=== PATIENT | female | born 1950 | race Caucasian/White ===

== ENCOUNTER 2017-07-25 11:05 | Emergency (ER) | payer MEDICARE, SELFPAY ==
[2017-07-25 11:12] VITALS: BP 144/77; PULSE 75; RESP 18; TEMP 36.8; O2SAT 98
--- NOTE | 2017-07-25 11:15 | DI.RAD.S_ITS ---
PROCEDURE: XR WRIST LT MIN 3V INDICATIONS: slip and fall, pain Technique: 4 views of the left wrist were obtained. COMPARISON: None. FINDINGS: Bones: No fractures or dislocations. No suspicious bony lesions. Moderate degenerative changes are present involving the basal joints of the thumb. The mineralization appears to be decreased involving the osseous structures of the wrist. Scaphoid view: Scaphoid appears to be intact. Soft tissues: No suspicious soft tissue calcifications. No significant soft tissue swelling is evident. IMPRESSION: No acute osseous abnormalities of the left wrist. Dictated by: Jeronimo Bowser M.D. on 07/25/2017 at 11:06 Approved by: Jeronimo Bowser M.D. on 07/25/2017 at 11:07
[2017-07-25 12:52] VITALS: BP 145/87; PULSE 70; RESP 12; O2SAT 98
--- NOTE | 2017-07-25 12:53 | ED.UPPEXIN ---
HPI - Extremity Injury (Upper) <PHOEBE Campos - Last Filed: 07/25/17 22:15> General Chief Complaint: Extremity Injury, Upper Stated Complaint: FELL THIS MORNING Source: patient History of Present Illness HPI narrative: 67-year-old female here for complaint of pain to her left wrist status post fall this morning. She states that she was walking her dog earlier this morning when the lesion of the dog wrapped around her causing her to fall when she went to [place] brace her fall with her left arm. She reports that right after the fall she had some slight swelling to her left wrist. She denies any other injuries no head injuries no loss conscious no nausea or vomiting. Increased pain with motion of the left wrist. Related Data Previous Rx's Medication Instructions Recorded lisinopril-hydrochlorothiazide 1 tab PO QAM #90 tab 04/09/16 ciclopirox 0.77 % TOPICAL BID #40 gm 05/17/16 Allergies Allergy/AdvReac Type Severity Reaction Status Date / Time bacitracin Allergy Mild rash Unverified 06/26/17 13:01 [From NEOSPORIN ([id number])] neomycin Allergy Mild rash Unverified 06/26/17 13:01 [From NEOSPORIN ([id number])] polymyxin B Allergy Mild rash Unverified 06/26/17 13:01 [From NEOSPORIN ([id number])] Review of Systems <PHOEBE Campos - Last Filed: 07/25/17 22:15> Review of Systems All systems reviewed & are unremarkable except as noted in HPI and below Constitutional Denies chills, Denies fever(s), Denies lethargy and Denies weakness Eyes Denies change in vision, Denies eye discharge, Denies irritation and Denies loss of vision Cardiovascular Denies chest pain, Denies irregular heart rhythm, Denies lightheadedness, Denies palpitations and Denies orthopnea Gastrointestinal Gastrointestinal: Denies abdominal pain, Denies change in bowel habits, Denies diarrhea, Denies nausea and Denies vomiting Genitourinary Denies hematuria, Denies flank pain, Denies urinary incontinence and Denies urinary urgency Musculoskeletal Comments: Pain to left wrist Neurologic Denies loss of vision and Denies weakness Endocrine Denies palpitations Exam <PHOEBE Campos - Last Filed: 07/25/17 22:15> Const General: cooperative and well developed Nutritional Appearance: well nourished Orientation: alert, awake, oriented x3 and not confused Eyes General: appearance normal, both eyes and all related structures Eyelids: eyelids normal Conjunctivae: conjunctivae normal Sclera: sclerae normal Pupils: PERRL EOM: EOM intact bilaterally Resp Effort & Inspection: normal respiratory effort, able to speak in complete sentences, no respiratory distress and no use of accessory muscles Auscultation: clear to auscultation bilaterally, no rales, no rhonchi and no wheezes Cardio Rate: regular rate Rhythm: regular rhythm Heart Sounds: no click, no gallops, no murmurs and no rubs Pulses: normal peripheral pulses Skin General: no rashes or lesions noted, No jaundice, No petechiae and warm Extrem Other: Slight swelling to left wrist. No deformities. No ecchymosis. Full range of motion. Distal sensation is intact. Distal pulses are intact. No open lesions Course <PHOEBE Campos - Last Filed: 07/25/17 22:15> Orders Ordered: ED Orders 07/25/17 11:15 XR wrist LT min 3V Stat Last Vital Signs Temp 98.3 F 07/25/17 11:12 Pulse 70 07/25/17 12:52 Resp 12 07/25/17 12:52 BP 145/87 H 07/25/17 12:52 Pulse Ox 98 07/25/17 12:52 <Rey Mares MD - Last Filed: 08/02/17 03:49> Orders Ordered: ED Orders 07/25/17 11:15 XR wrist LT min 3V Stat Last Vital Signs Temp 98.3 F 07/25/17 11:12 Pulse 70 07/25/17 12:52 Resp 12 07/25/17 12:52 BP 145/87 H 07/25/17 12:52 Pulse Ox 98 07/25/17 12:52 MDM - Extremity Injury (Upper) <PHOEBE Campos - Last Filed: 07/25/17 22:15> MDM Narrative Medical decision making narrative: X-ray of the left wrist was obtained and was negative for any acute findings. Signs and symptoms presents as contusion/sprain to the left wrist. She is placed in an Juice wrap for comfort and support. [id number] Tylenol or Motrin as needed for any discomfort. Ice and elevation to help with any swelling. Follow up with primary care provider. Review recommend repeat films in 7-10 days to rule out occult fracture. For any worsening symptoms return to the emergency room. Imaging Data wrist: Radiologist's impression: PROCEDURE: XR WRIST LT MIN 3V INDICATIONS: slip and fall, pain Technique: 4 views of the left wrist were obtained. COMPARISON: None. FINDINGS: Bones: No fractures or dislocations. No suspicious bony lesions. Moderate degenerative changes are present involving the basal joints of the thumb. The mineralization appears to be decreased involving the osseous structures of the wrist. Scaphoid view: Scaphoid appears to be intact. Soft tissues: No suspicious soft tissue calcifications. No significant soft tissue swelling is evident. IMPRESSION: No acute osseous abnormalities of the left wrist. <Rey Mares MD - Last Filed: 08/02/17 03:49> Medical Records The PA/ENTERTAINMENT CENTRE MANAGER functioned independently for the care of this pt, I was available, but not asked to participate in care. I am unable to determine appropriateness of management without personally examining the pt. Discharge Plan Departure Patient Disposition: Home, Self-Care Clinical Impression: Left wrist sprain Discharge Date/Time: 07/25/17 13:09 Interventions: ED Discharge Assessment Last Done: 07/25/17 13:08 Instructions: DI for Wrist Sprain Activity Restrictions/Additional Instructions: X-ray of the left wrist was obtained and was negative for any acute findings. Signs and symptoms presents as contusion/sprain to the left wrist. You have been placed in an Juice wrap for comfort and support use as directed. [id number] Tylenol or Motrin as needed for any discomfort. Ice and elevation to help with any swelling. Follow up with primary care provider. Recommend repeat films in 7-10 days to rule out occult fracture. For any worsening symptoms return to the emergency room. Prescriptions: No Action lisinopril-hydrochlorothiazide 20 MG/12.5 MG tablet 1 tab PO QAM Qty: 90 RF: 3 ciclopirox 30 GM gel 0.77 % Topical BID Qty: 40 RF: 0 Referrals: Alonzo Ritchie [Primary Care Provider] -
--- NOTE | 2017-07-25 13:06 | ED_ITS ---
HPI - Extremity Injury (Upper) <PHOEBE Campos - Last Filed: 07/25/17 22:15> General Chief Complaint: Extremity Injury, Upper Stated Complaint: FELL THIS MORNING Source: patient History of Present Illness HPI narrative: 67-year-old female here for complaint of pain to her left wrist status post fall this morning. She states that she was walking her dog earlier this morning when the lesion of the dog wrapped around her causing her to fall when she went to [place] brace her fall with her left arm. She reports that right after the fall she had some slight swelling to her left wrist. She denies any other injuries no head injuries no loss conscious no nausea or vomiting. Increased pain with motion of the left wrist. Related Data Previous Rx's Medication Instructions Recorded lisinopril-hydrochlorothiazide 1 tab PO QAM #90 tab 04/09/16 ciclopirox 0.77 % TOPICAL BID #40 gm 05/17/16 Allergies Allergy/AdvReac Type Severity Reaction Status Date / Time bacitracin Allergy Mild rash Unverified 06/26/17 13:01 [From NEOSPORIN ([id number])] neomycin Allergy Mild rash Unverified 06/26/17 13:01 [From NEOSPORIN ([id number])] polymyxin B Allergy Mild rash Unverified 06/26/17 13:01 [From NEOSPORIN ([id number])] Review of Systems <PHOEBE Campos - Last Filed: 07/25/17 22:15> Review of Systems All systems reviewed & are unremarkable except as noted in HPI and below Constitutional Denies chills, Denies fever(s), Denies lethargy and Denies weakness Eyes Denies change in vision, Denies eye discharge, Denies irritation and Denies loss of vision Cardiovascular Denies chest pain, Denies irregular heart rhythm, Denies lightheadedness, Denies palpitations and Denies orthopnea Gastrointestinal Gastrointestinal: Denies abdominal pain, Denies change in bowel habits, Denies diarrhea, Denies nausea and Denies vomiting Genitourinary Denies hematuria, Denies flank pain, Denies urinary incontinence and Denies urinary urgency Musculoskeletal Comments: Pain to left wrist Neurologic Denies loss of vision and Denies weakness Endocrine Denies palpitations Exam <PHOEBE Campos - Last Filed: 07/25/17 22:15> Const General: cooperative and well developed Nutritional Appearance: well nourished Orientation: alert, awake, oriented x3 and not confused Eyes General: appearance normal, both eyes and all related structures Eyelids: eyelids normal Conjunctivae: conjunctivae normal Sclera: sclerae normal Pupils: PERRL EOM: EOM intact bilaterally Resp Effort & Inspection: normal respiratory effort, able to speak in complete sentences, no respiratory distress and no use of accessory muscles Auscultation: clear to auscultation bilaterally, no rales, no rhonchi and no wheezes Cardio Rate: regular rate Rhythm: regular rhythm Heart Sounds: no click, no gallops, no murmurs and no rubs Pulses: normal peripheral pulses Skin General: no rashes or lesions noted, No jaundice, No petechiae and warm Extrem Other: Slight swelling to left wrist. No deformities. No ecchymosis. Full range of motion. Distal sensation is intact. Distal pulses are intact. No open lesions Course <PHOEBE Campos - Last Filed: 07/25/17 22:15> Orders Ordered: ED Orders 07/25/17 11:15 XR wrist LT min 3V Stat Last Vital Signs Temp 98.3 F 07/25/17 11:12 Pulse 70 07/25/17 12:52 Resp 12 07/25/17 12:52 BP 145/87 H 07/25/17 12:52 Pulse Ox 98 07/25/17 12:52 <Rey Mares MD - Last Filed: 08/02/17 03:49> Orders Ordered: ED Orders 07/25/17 11:15 XR wrist LT min 3V Stat Last Vital Signs Temp 98.3 F 07/25/17 11:12 Pulse 70 07/25/17 12:52 Resp 12 07/25/17 12:52 BP 145/87 H 07/25/17 12:52 Pulse Ox 98 07/25/17 12:52 MDM - Extremity Injury (Upper) <PHOEBE Campos - Last Filed: 07/25/17 22:15> MDM Narrative Medical decision making narrative: X-ray of the left wrist was obtained and was negative for any acute findings. Signs and symptoms presents as contusion/ sprain to the left wrist. She is placed in an Juice wrap for comfort and support. [id number] Tylenol or Motrin as needed for any discomfort. Ice and elevation to help with any swelling. Follow up with primary care provider. Review recommend repeat films in 7-10 days to rule out occult fracture. For any worsening symptoms return to the emergency room. Imaging Data wrist: Radiologist's impression: PROCEDURE: XR WRIST LT MIN 3V INDICATIONS: slip and fall, pain Technique: 4 views of the left wrist were obtained. COMPARISON: None. FINDINGS: Bones: No fractures or dislocations. No suspicious bony lesions. Moderate degenerative changes are present involving the basal joints of the thumb. The mineralization appears to be decreased involving the osseous structures of the wrist. Scaphoid view: Scaphoid appears to be intact. Soft tissues: No suspicious soft tissue calcifications. No significant soft tissue swelling is evident. IMPRESSION: No acute osseous abnormalities of the left wrist. <Rey Mares MD - Last Filed: 08/02/17 03:49> Medical Records The PA/AIDS COUNSELOR functioned independently for the care of this pt, I was available, but not asked to participate in care. I am unable to determine appropriateness of management without personally examining the pt. Discharge Plan Departure Patient Disposition: Home, Self-Care Clinical Impression: Left wrist sprain Discharge Date/Time: 07/25/17 13:09 Interventions: ED Discharge Assessment Last Done: 07/25/17 13:08 Instructions: DI for Wrist Sprain Activity Restrictions/Additional Instructions: X-ray of the left wrist was obtained and was negative for any acute findings. Signs and symptoms presents as contusion/sprain to the left wrist. You have been placed in an Juice wrap for comfort and support use as directed. Over-the- counter Tylenol or Motrin as needed for any discomfort. Ice and elevation to help with any swelling. Follow up with primary care provider. Recommend repeat films in 7-10 days to rule out occult fracture. For any worsening symptoms return to the emergency room. Prescriptions: No Action lisinopril-hydrochlorothiazide 20 MG/12.5 MG tablet 1 tab PO QAM Qty: 90 RF: 3 ciclopirox 30 GM gel 0.77 % Topical BID Qty: 40 RF: 0 Referrals: Alonzo Ritchie [Primary Care Provider] -
== END 2017-07-25 13:09 | disposition home or self-care (01) ==
PROVIDERS: Emergency Provider Nurse Practitioner Family; PCP Family Medicine
DX: S63.502A Unspecified sprain of left wrist, initial encounter (principal); W19.XXXA Unspecified fall, initial encounter; Y93.K1 Activity, walking an animal
CPT/HCPCS: 73110; 99282; 99283

== ENCOUNTER → 2019-01-13 13:08 | Outpatient (CLI) | payer MEDICARE, OTHER, SELFPAY ==
[2019-01-13 13:42] LABS: Alanine Aminotransferase 20 IU/L (9-52); Albumin 4.5 g/dL (3.5-5.0); Albumin Globulin Ratio 1.5 (1.0-2.8); Alkaline Phosphatase 92 U/L (38-126); Aspartate Aminotransferase 22 IU/L (14-36); Bilirubin Total 0.6 mg/dL (0.2-1.3); Blood Urea Nitrogen 16 mg/dL (7-17); Calcium 10.5 mg/dL (8.4-10.2); Carbon Dioxide 32 mmol/L (22-32); Chloride 101 mmol/L (98-107); Estimated Glomerular Filt Rate > 60.0 mL/min (>60); Globulin 3.1 g/dL (1.7-4.1); Glucose 101 mg/dL (80-110); HEMOLYSIS 17 (0-50); Potassium 4.4 mmol/L (3.4-5.1); Sodium 140 mmol/L (137-145); Total Protein 7.6 g/dL (6.3-8.2)
--- NOTE | 2019-01-13 14:05 | DI.CT.S_ITS ---
PROCEDURE: CT ABDOMEN PELVIS W CON INDICATIONS: Unspecified abdominal pain/ please order labs STAT TECHNIQUE: After the administration of oral and intravenous contrast, 5 mm thick sections acquired from the diaphragms to the symphysis. 5 mm thick coronal and sagittal reformats were performed. For radiation dose reduction, the following was used: automated exposure control, adjustment of mA and/or kV according to patient size. COMPARISON: [facility], CR, XR PELVIS WITH BILATERAL LATERAL HIPS, 10/21/2018, 12:55. FINDINGS: Image quality: Excellent. ABDOMEN: Lung bases: Lung bases are clear. Heart size is normal. Solid organs: Liver is normal in size. Multiple low attenuation hepatic foci are present. Most are too small to definitively characterize. The largest measuring 10 mm is most suggestive of cyst. Gallbladder is unremarkable. Biliary system is non-dilated. Pancreas demonstrates a mild strandy appearance to the uncinate process. Spleen is normal in size and enhancement. There is a heterogeneously enhancing left adrenal mass measuring 43 mm AP by 35 mm transverse. 5 mm superior right renal pole hypointensity is present likely a small cyst. Parapelvic cysts are present bilaterally. Punctate presumed exophytic cyst is also noted on the right. Kidneys are normal in size and enhancement, without hydronephrosis. Peritoneum and bowel: Stomach, small bowel, and colon loops are normal in caliber and wall thickness. No free fluid or air. Nodes and vessels: No retroperitoneal or mesenteric adenopathy. Aorta and inferior vena cava are normal in caliber. Miscellaneous: No ventral hernias. PELVIS: Genitourinary: Bladder wall thickness is normal. Miscellaneous: No inguinal hernias or adenopathy. Bones: There are 2 punctate areas of sclerosis within the right iliac bone. No vertebral body compression fractures. IMPRESSION: 1. Somewhat strandy appearance of the uncinate process as above. All this could represent an early inflammatory process, recommend correlation to lipase and amylase values. A mass lesion cannot be definitively excluded, it is felt to be less likely given appearance of fatty infiltration and lack of well-defined soft tissue mass. However, if clinical concern persists, CT with pancreatic protocol may be obtained. 2. Heterogeneously enhancing left adrenal mass. Etiology is indeterminate in base of this examination. However, neoplastic focus cannot be excluded. Further evaluation with CT with adrenal protocol is recommended. 3. Multiple low attenuation hepatic foci, too small to definitively characterize. These could represent cysts. However, other etiologies cannot be excluded. 4. Punctate sclerotic foci within the iliac bone. There are indeterminate and no priors are available for comparison. They are not visible on prior pelvic x-ray of 10/21/18. Bone scan may be helpful for further evaluation. Dictated by: Kyung Schuster M.D. on 01/13/2019 at 17:02 Approved by: Kyung Schuster M.D. on 01/13/2019 at 17:13
== END ==
PROVIDERS: PCP Family Medicine; Visit Provider Family Medicine
DX: R10.9 Unspecified abdominal pain (principal)
CPT/HCPCS: 36415; 74177; 80053; Q9967

== ENCOUNTER → 2019-02-26 12:19 | Outpatient (CLI) | payer MEDICARE, OTHER, SELFPAY ==
--- NOTE | 2019-02-26 | DI.MRI.S_ITS ---
PROCEDURE: MR ABDOMEN WO CON INDICATIONS: Other specified disorders of adrenal gland TECHNIQUE: Coronal HASTE, axial 2-D FLASH in- and [id number] with subtractions from the hepatic dome to the iliac crests. COMPARISON: [facility], CT, CT ABDOMEN PELVIS W CON, 01/13/2019, 14:17. FINDINGS: Image quality: Excellent. Adrenal glands: There is a left adrenal mass redemonstrated measuring up to approximately 4.0 x 3.5 cm in transverse dimension, stable in size compared to the prior study. There is diffuse heterogeneous signal dropout on [id number] imaging indicative of the presence of intra-voxel microscopic fat. No right adrenal nodule. Other solid organs: The liver demonstrates mild signal dropout on out of phase imaging compatible with mild fatty infiltration. There is relative sparing along the gallbladder fossa. There are few scattered small hepatic cysts. Biliary system is non dilated. Pancreas is normal in morphology without peripancreatic edema or fluid collections. Pancreatic duct is normal in caliber. Spleen is normal in size. There are bilateral parapelvic renal cysts. No hydronephrosis. Nodes and vessels: No retroperitoneal or mesenteric adenopathy by size criteria. Aorta and inferior vena cava are normal in size. Bowel and peritoneum: Visualized bowel loops are normal in caliber. No free fluid. Lung bases: No basal pleural effusions. Heart size is normal. Bones and soft tissues: No ventral hernias. Bone marrow is of normal overall signal. IMPRESSION: 1. Left adrenal mass measuring of the 4 cm redemonstrated. There is microscopic fat suggestive of a lipid rich adenoma. However, given its size, biochemical evaluation is recommended to determine functional status and to exclude pheochromocytoma. Dictated by: Nate Lawrence M.D. on 02/26/2019 at 16:52 Approved by: Nate Lawrence M.D. on 02/26/2019 at 16:58
== END ==
PROVIDERS: PCP Family Medicine; Visit Provider Family Medicine
DX: E27.8 Other specified disorders of adrenal gland (principal)
CPT/HCPCS: 74181

== ENCOUNTER → 2020-05-05 11:13 | Outpatient (CLI) | payer MEDICARE, OTHER, SELFPAY ==
--- NOTE | 2020-05-05 | DI.MRI.S_ITS ---
PROCEDURE: MR ABDOMEN WO CON INDICATIONS: LEFT ADRENAL MASS TECHNIQUE: Coronal HASTE, axial 2-D FLASH in- and [id number] with subtractions from the hepatic dome to the iliac crests. COMPARISON: [facility], CT, CT ABDOMEN PELVIS W CON, 01/13/2019, 14:17. [facility], MR, MR ABDOMEN WO CON, 02/26/2019, 12:35. FINDINGS: Image quality: Excellent. Adrenal glands: There is a left adrenal mass measuring 4.1 x 3.5 cm in the axial plane, stable size compared to the prior study. It continues to demonstrate T1 signal minimally hyperintense to skeletal muscle and moderate heterogeneous signal drop on T1 out of phase imaging indicative of microscopic fat. No right-sided adrenal nodule. Other solid organs: Liver is normal in overall size. Several scattered small hepatic cysts. There is minor hepatic parenchymal signal drop on T1 out of phase imaging suggesting mild steatosis. Gallbladder contains several stones of varying sizes but no wall thickening or pericholecystic fluid.. Biliary system is non dilated. Pancreas is normal in morphology. Spleen is normal in size. Both kidneys are normal in size, without hydronephrosis. Small right cortical cyst and several left parapelvic cysts in the kidneys are present. Nodes and vessels: No retroperitoneal or mesenteric adenopathy by size criteria. Aorta and inferior vena cava are normal in size. Bowel and peritoneum: Unenhanced bowel loops are normal in caliber. No free fluid. Lung bases: No basal pleural effusions. Heart size is normal. Bones and soft tissues: No ventral hernias. Bone marrow is of normal overall signal. IMPRESSION: 1. 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 2. Mild hepatic steatosis. 3. Cholelithiasis. Dictated by: Teodora Anglin M.D. on 05/05/2020 at 12:41 Approved by: Teodora Anglin M.D. on 05/05/2020 at 12:49
== END ==
PROVIDERS: PCP Family Medicine; Referring Provider Family Medicine; Visit Provider Family Medicine
DX: E27.8 Other specified disorders of adrenal gland (principal); K76.0 Fatty (change of) liver, not elsewhere classified; K80.20 Calculus of gallbladder without cholecystitis without obstruction
CPT/HCPCS: 74181

== ENCOUNTER → 2021-07-07 08:59 | Outpatient (CLI) | payer MEDICARE, OTHER, SELFPAY ==
[2021-07-07 19:42] LABS: Alanine Aminotransferase 15 IU/L (<35); Albumin 3.8 g/dL (3.5-5.0); Albumin Globulin Ratio 1.5 (1.0-2.8); Alkaline Phosphatase 83 U/L (38-126); Aspartate Aminotransferase 22 IU/L (14-36); BUN Creatinine Ratio 13.9 (6-22); Bilirubin Total 1.2 mg/dL (0.2-1.3); Blood Urea Nitrogen 10 mg/dL (7-17); Calcium 9.1 mg/dL (8.4-10.2); Carbon Dioxide 26 mmol/L (22-32); Chloride 107 mmol/L (98-107); Cholesterol 235 mg/dL (140-199); Estimated Glomerular Filt Rate > 60 mL/min (>60); Globulin 2.5 g/dL (1.7-4.1); Glucose 103 mg/dL (80-110); HDL Cholesterol 61 mg/dL (40-60); HEMOLYSIS 24 (0-50); LDL Cholesterol Calculated 152 mg/dL (<100); Potassium 3.9 mmol/L (3.4-5.1); Sodium 138 mmol/L (137-145); Total Protein 6.3 g/dL (6.3-8.2); Triglycerides 108 mg/dL (35-150)
[2021-07-07 19:53] LABS: Add Manual Diff / Slide Review NO; Basophils Absolute Auto 0 /uL (0-100); Basophils Percent Auto 0.7 % (0-2); Eosinophils Absolute Auto 200 /uL (0-450); Eosinophils Percent Auto 2.9 % (2-4); Hemoglobin 13.3 g/dL (12.0-16.0); Lymphocytes Absolute Auto 2000 /uL (1100-4500); Lymphocytes Percent Auto 28.9 % (25-40); Mean Corpuscular Hemoglobin 29.3 PG (26-34); Mean Corpuscular Volume 86.2 fL (80-100); Monocytes Absolute Auto 800 /uL (0-900); Monocytes Percent Auto 11.3 % (3-14); Neutrophils Absolute Auto 3800 /uL (1500-7000); Neutrophils Percent Auto 56.2 % (50-75); Platelet Count 216 X10^3/uL (150-400); Red Blood Cell Count 4.52 X10^6/uL (4.0-5.2); White Blood Cell Count 6.8 X10^3/uL (4.5-11.0)
[2021-07-07 20:30] LABS: Vitamin B12 994 pg/mL (239-931)
== END ==
PROVIDERS: PCP Physician Assistant; Visit Provider Physician Assistant
DX: I10 Essential (primary) hypertension (principal); E27.8 Other specified disorders of adrenal gland; E53.8 Deficiency of other specified B group vitamins; E78.2 Mixed hyperlipidemia; K21.00 Gastro-esophageal reflux disease with esophagitis, without bleeding
CPT/HCPCS: 80053; 80061; 82607; 85025

== ENCOUNTER → 2023-03-03 15:15 | Outpatient (CLI) | payer MEDICARE, OTHER, SELFPAY ==
--- NOTE | 2023-03-03 15:18 | DI.MRI.S_ITS ---
PROCEDURE: MR TMJ WO CON INDICATIONS: left jaw dysfunction and intermittent pain s/p dental work TECHNIQUE: Axial T1 spin echo, coronal and sagittal PD fast spin echo through the temporomandibular joints, in both the closed- and open-mouth positions. COMPARISON: None. FINDINGS: Image quality: Excellent. Right: Joint is normally aligned on closed and open-mouth positioning. The right articular disc demonstrates an unremarkable appearance. On the open mouth images, the right articular disc appropriately captures. No bony erosions or osteophytes. Left: Joint is normally aligned on closed and open-mouth positioning. The left articular disc appears truncated. On the open mouth images, the left articular disc appropriately captures. No bony erosions or osteophytes. IMPRESSION: Abnormal, truncated appearance left articular disc. Dictated by: Lewis Sanders M.D. on 03/04/2023 at 14:29 Approved by: Lewis Sanders M.D. on 03/04/2023 at 14:33
== END ==
PROVIDERS: PCP Physician Assistant; Referring Provider Physician Assistant; Visit Provider Physician Assistant
DX: R25.2 Cramp and spasm (principal); M26.602 Left temporomandibular joint disorder, unspecified
CPT/HCPCS: 70336

== ENCOUNTER 2023-10-07 18:46 | Emergency (ER) | payer MEDICARE, OTHER, SELFPAY ==
[2023-10-07 19:09] VITALS: BP 171/98; PULSE 96; RESP 18; TEMP 36.3; O2SAT 97; BMI 39.4
--- NOTE | 2023-10-07 19:16 | DI.RAD.S_ITS ---
PROCEDURE: XR FOREARM LT 2V INDICATIONS: deformity/recent fall TECHNIQUE: 2 views of the forearm were acquired. COMPARISON: None. FINDINGS: Bones: There is a comminuted, transverse fracture of the distal left radius with intra-articular extension. Fracture of the distal ulnar styloid process. There is radial/dorsal displacement of distal fracture fragment. Other visualized osseous structures appear intact. Soft tissues: No suspicious soft tissue calcifications or masses. IMPRESSION: Displaced, comminuted intra-articular fracture of the distal left radius. Displaced fracture of the distal ulnar styloid process. Dictated by: Mark Herrera M.D. on 10/07/2023 at 20:22 Approved by: Mark Herrera M.D. on 10/07/2023 at 20:23
--- NOTE | 2023-10-07 19:16 | DI.RAD.S_ITS ---
PROCEDURE: XR WRIST LT MIN 3V INDICATIONS: deformity/recent fall TECHNIQUE: 4 views of the wrist were acquired. COMPARISON: [facility], CR, XR WRIST LT MIN 3V, 07/25/2017, 10:56. FINDINGS: Bones: Comminuted, impacted intra-articular fracture of the distal left radius with dorsal displacement of the distal fracture fragment. There is also mildly displaced fracture of the distal ulnar styloid process. No suspicious osseous lesions. Soft tissues: No suspicious soft tissue calcifications. IMPRESSION: Comminuted, displaced intra-articular fracture of the distal left radius. Mildly displaced fracture of the distal ulnar styloid process. Dictated by: Mark Herrera M.D. on 10/07/2023 at 20:23 Approved by: Mark Herrera M.D. on 10/07/2023 at 20:24
[2023-10-07 21:26] VITALS: BP 174/79; PULSE 94; RESP 16; O2SAT 100
[2023-10-08] VITALS (32 sets, daily range): BP systolic 118–167; BP diastolic 57–98; PULSE 76–91; RESP 15–27; TEMP 36.6; O2SAT 92–97
--- NOTE | 2023-10-08 02:33 | ED.UPPEXIN ---
HPI - Extremity Injury (Upper) General Chief Complaint: Extremity Injury, Upper Stated Complaint: Fall, wrist injury Time Seen by Provider: 10/08/23 02:33 History of Present Illness HPI narrative: 73-year-old female fell forward from a porch at friend's house, when her dog on a leash ran at another dog, pulling her forward, she fell onto her left wrist, small puncture wound dressed, here for further evaluation. No other injuries. Specifically she denies any pain to her head, neck, upper back, lower back, chest, abdomen, pelvis. She also denies pain to the proximal left arm, elbow, upper arm, shoulder. No pain at left hand or fingers. No injuries to her other right upper extremity, no injuries to legs or hips. She has not take chronic blood thinner medications. Related Data Home Medications Medication Instructions Recorded Confirmed aspirin 81 mg tablet,delayed 81 mg PO DAILY 12/29/20 06/14/22 release (Enteric Coated Aspirin) cholecalciferol (vitamin D3) 50 50 mcg PO DAILY 12/29/20 06/14/22 mcg (2,000 unit) capsule multivitamin 1 tab PO DAILY 12/29/20 06/14/22 vitamin B complex (B 1 tab PO DAILY 12/29/20 06/14/22 Complex-Vitamin B12 tablet) coenzyme Q10 100 mg capsule 200 mg PO DAILY 07/17/21 06/14/22 (CoQ-10) Previous Rx's Medication Instructions Recorded ciclopirox 0.77 % topical gel 0.77 % topical BID ##40 05/17/16 lisinopril 20 See Rx Instructions .Route 09/25/22 mg-hydrochlorothiazide 12.5 mg .COMPLEX #90 tabs tablet cyclobenzaprine 10 mg tablet 10 mg PO BEDTIME #7 tabs 02/27/23 omeprazole 20 mg capsule,delayed See Rx Instructions .Route 07/09/23 release .COMPLEX #90 caps cephalexin 500 mg capsule 500 mg PO QID 7 days #28 caps 10/08/23 Allergies Allergy/AdvReac Type Severity Reaction Status Date / Time neomycin Allergy Mild rash Verified 06/14/22 15:16 [From NEOSPORIN ([id number])] polymyxin B Allergy Mild rash Verified 06/14/22 15:16 [From NEOSPORIN ([id number])] Review of Systems Review of Systems Narrative: Per HPI Patient History Medical History (Updated 10/08/23 @ 04:50 by Deepak Christian MD) Acne Fractures Mumps Measles Chicken pox Kidney stones (~2014) History of nonmelanoma skin cancer Benign nevus Seborrheic keratosis Basal cell carcinoma Encounter for Medicare annual wellness exam Surgical History (Updated 02/05/21 @ 19:43 by Majo Heller) Anesthesia History of esophagogastroduodenoscopy (EGD) (~2019) History of colonoscopy History of cataract removal with insertion of prosthetic lens (~2013) Squamous cell skin cancer (~2003) Family History (Updated 02/05/21 @ 19:51 by Majo Heller) Father Colon cancer History of heart disease Hyperlipidemia Hypertension Mother COPD (chronic obstructive pulmonary disease) Sister Cancer Mental health problem Schizophrenia Grandmother Gallstones Grandfather History of heart disease Hypertension Grandmother Breast cancer Social History Smoking Status: Never smoker Smoking Status: Never smoker alcohol intake frequency: 0-2 drinks per day Substance Use Type: does not use Exam Narrative Exam Narrative: GENERAL: Well-developed patient, in mild distress. HEAD: Atraumatic. Normocephalic. EYES: Pupils equal round and reactive. Extraocular motions intact. No scleral icterus. No injection or drainage. ENT: Nose without bleeding, purulent drainage. Throat without erythema, tonsillar hypertrophy or exudate. Airway patent. NECK: Trachea midline. Non tender CARDIOVASCULAR: Regular rate and rhythm without murmurs, gallops, or rubs. RESPIRATORY: Clear to auscultation. Breath sounds equal bilaterally. No wheezes, rales, or rhonchi. GASTROINTESTINAL: Abdomen soft, non-tender, nondistended. EXTREMITIES: Left distal wrist swelling and deformity, volar puncture wound proximally 5 mm in width, a number of mm in depth, no visual bony structures or tendinous structures, no foreign bodies obvious. No tenderness to left mid proximal forearm, elbow, upper arm, shoulder, clavicle. No obvious injuries to right upper extremity, bilateral lower extremities. BACK: Nontender without deformity or crepitance. No flank tenderness. NEURO: AOx3. Grossly nonfocal neuro exam SKIN: No rash or erythema of visible areas Initial Vital Signs Initial Vital Signs: Vital Signs Temperature 97.3 F L 10/07/23 19:09 Pulse Rate 96 H 10/07/23 19:09 Respiratory Rate 18 07/22/24 19:09 Blood Pressure 171/98 H 10/07/23 19:09 Pulse Oximetry 97 10/07/23 19:09 Oxygen Delivery Method Room Air 10/07/23 19:09 Procedures Laceration Repair Laceration 1: Time of procedure: 03:58 Site: upper extremity (Volar left wrist) Size (cm): 0.5 Description: linear Depth: simple, single layer Local Anesthetic: lidocaine 1% and with epi Amount of anesthesia used (mL): 5 Pre-repair: wound explored Skin layer closed with: nylon Skin layer suture size: 4-0 Number of sutures: 1 Technique: simple, interrupted Procedural Sedation Time of procedure: 04:15 Consent signed: Yes Time out performed: Yes Indication: fracture/dislocation reduction Presedation Evaluation: IV Dilaudid 0.5mg given prior ASA Class: I Mallampati Airway Classification: Class I Time of Last PO Intake: 18:00 Preparation: surveillance system monitor applied, pulse oximeter, capnometry used, supplemental O2 applied, reversal agents at bedside, suction/airway equipment at bedside and IV secured IV Propofol dose (mg): 120 ED Sedation Level: Moderate (Concious) Patient Tolerated Procedure: No complications Complications: none Additional Comments: Reduction with distraction counter traction to forearm, with some dorsal pressure to volar wrist, palpable reduction, postreduction x-ray satisfactory, some lengthening, better positioning. Good cap refill in splint. Tolerated well. Course Orders Ordered: ED Orders 10/08/23 04:27 XR forearm LT 2V Stat Discontinued Medications Bacitracin (Bacitracin 28 Gm Oint) 1 applic TOP NOW ONE Stop: 10/08/23 03:58 Last Admin: 10/08/23 05:17 Dose: Not Given Documented By: MARCO A Bacitracin (Bacitracin Oint 0.9 Gm Pckt) 1 applic TOP NOW ONE Stop: 10/08/23 04:01 Last Admin: 10/08/23 04:05 Dose: 1 applic Documented By: MARCO A Sodium Chloride (Normal Saline 0.9%) 1,000 mls @ 1,000 mls/hr IV BOLUS ONE Stop: 10/08/23 03:35 Last Infusion: 10/08/23 05:11 Dose: Infused Documented By: Admin: 10/08/23 04:00 Dose: 1,000 mls/hr Documented By: Ceftriaxone Sodium 1,000 mg/ (Sodium Chloride) 100 mls @ 200 mls/hr IV NOW ONE Stop: 10/08/23 03:55 Last Infusion: 10/08/23 05:10 Dose: Infused Documented By: Admin: 10/08/23 04:38 Dose: 200 mls/hr Documented By: Lidocaine/Epinephrine (Lidocaine 1% W/Epi) 20 ml INJ INTRA-OP ONE Stop: 10/08/23 04:38 Last Admin: 10/08/23 04:38 Dose: 5 ml Documented By: Propofol (Propofol 200 Mg/20 Ml Vial) 210 mg 2 mg/kg (210 mg) IV NOW ONE Stop: 10/08/23 02:35 Last Admin: 10/08/23 04:11 Dose: 210 mg Documented By: Tramadol HCl (Tramadol 50 Mg Prepack) 1 bottle MISC DIRECTED ONE Stop: 10/08/23 04:47 Last Admin: 10/08/23 05:30 Dose: 1 bottle Documented By: Vital Signs Vital signs: Vital Signs - 8 hr 10/08/23 01:16 10/08/23 03:12 10/08/23 03:12 Temperature 97.9 F Pulse Rate 91 H 79 Respiratory Rate 18 16 Blood Pressure 167/98 H 134/63 Pulse Oximetry 95 96 Oxygen Delivery Method Room Air 10/08/23 03:15 10/08/23 03:20 10/08/23 03:25 Temperature Pulse Rate 86 81 78 Respiratory Rate 27 H 17 17 Blood Pressure Pulse Oximetry 96 96 94 Oxygen Delivery Method 10/08/23 03:30 10/08/23 03:35 10/08/23 03:40 Temperature Pulse Rate 81 79 81 Respiratory Rate 20 19 22 Blood Pressure Pulse Oximetry 96 95 94 Oxygen Delivery Method 10/08/23 03:45 10/08/23 03:50 10/08/23 03:55 Temperature Pulse Rate 77 85 78 Respiratory Rate 19 20 20 Blood Pressure Pulse Oximetry 95 96 95 Oxygen Delivery Method 10/08/23 04:00 10/08/23 04:05 10/08/23 04:10 Temperature Pulse Rate 84 86 88 Respiratory Rate 19 19 19 Blood Pressure Pulse Oximetry 94 94 95 Oxygen Delivery Method 10/08/23 04:15 10/08/23 04:15 10/08/23 04:20 Temperature Pulse Rate 88 85 Respiratory Rate 19 20 Blood Pressure 118/91 H Pulse Oximetry 93 94 Oxygen Delivery Method 10/08/23 04:21 10/08/23 04:21 10/08/23 04:25 Temperature Pulse Rate 81 77 Respiratory Rate 20 20 Blood Pressure 149/60 H Pulse Oximetry 93 96 Oxygen Delivery Method 10/08/23 04:26 10/08/23 04:26 10/08/23 04:30 Temperature Pulse Rate 83 Respiratory Rate 22 Blood Pressure 167/91 H 158/68 H Pulse Oximetry 95 Oxygen Delivery Method 10/08/23 04:30 10/08/23 04:32 10/08/23 04:35 Temperature Pulse Rate 85 82 84 Respiratory Rate 17 15 16 Blood Pressure Pulse Oximetry 92 96 Oxygen Delivery Method 10/08/23 04:35 10/08/23 04:40 10/08/23 04:40 Temperature Pulse Rate 82 Respiratory Rate 22 Blood Pressure 141/57 H 139/64 Pulse Oximetry 95 Oxygen Delivery Method 10/08/23 04:45 10/08/23 04:45 10/08/23 04:50 Temperature Pulse Rate 82 84 Respiratory Rate 23 25 H Blood Pressure 142/68 H Pulse Oximetry 96 96 Oxygen Delivery Method 10/08/23 04:55 10/08/23 05:00 10/08/23 05:00 Temperature Pulse Rate 80 82 Respiratory Rate 21 23 Blood Pressure 137/66 Pulse Oximetry 96 96 Oxygen Delivery Method 10/08/23 05:05 10/08/23 05:10 10/08/23 05:15 Temperature Pulse Rate 86 85 84 Respiratory Rate 19 17 17 Blood Pressure Pulse Oximetry 97 97 95 Oxygen Delivery Method 10/08/23 05:15 10/08/23 05:20 10/08/23 05:25 Temperature Pulse Rate 76 85 Respiratory Rate 20 23 Blood Pressure 150/72 H Pulse Oximetry 95 96 Oxygen Delivery Method MDM - Extremity Injury (Upper) Lab Data Labs: Point of Care Testing Test Results Not applicable MDM Narrative Medical decision making narrative: 73-year-old female with ground level fall, left wrist pain swelling and deformity, small volar laceration, no visible bone or foreign body. X-rays showed Colles type fracture with angulation comminution. IV conscious sedation for fracture reduction, see separate procedure note, improved position on post reduction x-rays. Discharged in splint and sling with . Home pack tramadol. Contact information for local orthopedic surgery Dr. Cordon, call office later today to arrange near term follow up, likely will need internal fixation/pinning for stabilization. Patient made aware of likely surgery to follow up. Possible open fracture although no visible bone fragments, IV ceftriaxone given, discharged on oral Keflex. Discharged home with . Follow up with Orthopedic surgery as above. Return precautions discussed Discharge Plan Departure Patient Disposition: Home Clinical Impression: Colles' fracture of left radius, Laceration of left wrist Instructions: DI for Wrist Fracture Activity Restrictions/Additional Instructions: Ground level fall, left wrist pain and swelling with some deformity, small 0.5 cm volar wrist laceration, no visible bone or foreign body. X-ray showed fracture of the distal radius and ulna bones of the forearm bones at the wrist. The fracture was comminuted in multiple pieces, with impaction and angulation. No foreign bodies obvious on x-ray. Small laceration was closed. It is possible that laceration does communicate in some way with the fracture site, which would be an open fracture, antibiotics therefore initiated. IV ceftriaxone given in the emergency department, prescription for further antibiotic course to take orally in follow up. IV sedation for reduction successful, bone fragments were in better position and lengthened state, we will need definitive surgery for stabilization with Orthopedic surgery. Contact information given for Dr. Cordon of Orthopedic surgery, contact his office tomorrow for follow up care, to have surgery planned in the next few days, but not longer than a week or so. Prescriptions: New cephalexin 500 mg capsule 500 mg PO QID 7 Days Qty: 28 0RF No Action ciclopirox 30 GM gel 0.77 % Topical BID Qty: 40 0RF lisinopril-hydrochlorothiazide 20-12.5 mg tablet See Rx Instructions .ROUTE .COMPLEX Qty: 90 4RF Dose Instruction: TAKE ONE TABLET BY MOUTH EVERY MORNING Rx Instructions: TAKE ONE TABLET BY MOUTH EVERY MORNING omeprazole 20 mg capsule,delayed release(DR/EC) See Rx Instructions .ROUTE .COMPLEX Qty: 90 4RF Dose Instruction: TAKE ONE CAPSULE BY MOUTH EVERY DAY Rx Instructions: TAKE ONE CAPSULE BY MOUTH EVERY DAY coenzyme Q10 [CoQ-10] 100 mg capsule 200 mg PO DAILY vitamin B complex [B Complex-Vitamin B12] Tablet 1 tab PO DAILY multivitamin Tablet 1 tab PO DAILY cholecalciferol (vitamin D3) 50 mcg (2,000 unit) capsule 50 mcg PO DAILY aspirin [Enteric Coated Aspirin] 81 mg tablet,delayed release (DR/EC) 81 mg PO DAILY cyclobenzaprine 10 mg tablet 10 mg PO BEDTIME Qty: 7 0RF Referrals: Dwayne Cordon MD [Physician] - Carolyn Pearson PA-C [Primary Care Provider] - Stand Alone Forms: Patient Portal/API
[2023-10-08] MEDS: SODIUM CHLORIDE 0.9% 1,000 ML 1000 ML IV (04:00)
[2023-10-08] MEDS: BACITRACIN OINT 0.9 GM PCKT 1 APPLIC TOP (04:05)
[2023-10-08] MEDS: propofoL 200 MG/20 ML VIAL 210 MG IV (04:11)
--- NOTE | 2023-10-08 04:27 | DI.RAD.S_ITS ---
PROCEDURE: XR FOREARM LT 2V INDICATIONS: post reduction TECHNIQUE: 2 views of the forearm were acquired. COMPARISON: None. FINDINGS: Bones: Fracture again noted of the distal radius. Of the displaced fracture when compared to the study of 10/07/2023. Cast noted in place. Soft tissues: No suspicious soft tissue calcifications or masses. IMPRESSION: Radial fracture, reduced. Dictated by: Hudson Fowler M.D. on 10/08/2023 at 8:55 Approved by: Hudson Fowler M.D. on 10/08/2023 at 9:00
[2023-10-08] MEDS: cefTRIAXone 1,000 MG in SODIUM CHLORIDE 0.9% 100 ML 200 MG IV (04:38)
[2023-10-08] MEDS: LIDOCAINE 1% W/EPI 20 ML INJ (04:38)
--- NOTE | 2023-10-08 05:03 | PC.NURSE ---
0425 - Reverse Sugar Tong to right arm. 36 inches of 4 inch orthoglass material appled after cast padding. Used 2 - 4 inch aiden wraps and 1 - 2 inch aiden wrap over the top.
--- NOTE | 2023-10-08 05:07 | PC.NURSE ---
Pt roomed with a splint from Triage. Pt has radial and ulnar fracture. Was in a colles splint prior to provider suturing the open fracture. Stand by assist provider with 1 suture placement and wound care.
[2023-10-08] MEDS: TRAMADOL 50 MG PREPACK 1 BOTTLE MISC (05:30)
== END 2023-10-08 05:40 | disposition home or self-care (01) ==
PROVIDERS: Emergency Provider Emergency Medicine; PCP Physician Assistant
DX: S52.532A Colles' fracture of left radius, initial encounter for closed fracture (principal); S61.512A Laceration without foreign body of left wrist, initial encounter; Z79.899 Other long term (current) drug therapy; W17.89XA Other fall from one level to another, initial encounter
CPT/HCPCS: 12001; 25605; 29125; 73090; 73110; 96365; 99284; J0696; J2704

== ENCOUNTER → 2023-11-26 09:42 | Outpatient (CLI) | payer MEDICARE, OTHER, SELFPAY ==
[2023-11-26 19:32] LABS: Add Manual Diff / Slide Review NO; Basophils Absolute Auto 100 /uL (0-100); Basophils Percent Auto 0.7 % (0-2); Eosinophils Absolute Auto 100 /uL (0-450); Eosinophils Percent Auto 1.6 % (2-4); Hematocrit 41.3 % (36-46); Hemoglobin 13.9 g/dL (12.0-16.0); Lymphocytes Absolute Auto 1900 /uL (1100-4500); Lymphocytes Percent Auto 25.3 % (25-40); Mean Corpuscular HGB Conc 33.6 % (30-36); Mean Corpuscular Hemoglobin 29.5 PG (26-34); Mean Corpuscular Volume 87.8 fL (80-100); Monocytes Absolute Auto 600 /uL (0-900); Neutrophils Absolute Auto 4900 /uL (1500-7000); Neutrophils Percent Auto 64.4 % (50-75); Platelet Count 232 X10^3/uL (150-400); Red Blood Cell Count 4.71 X10^6/uL (4.0-5.2); Red Cell Distribution Width 15.2 % (11.6-14.8); White Blood Cell Count 7.6 X10^3/uL (4.5-11.0)
[2023-11-26 19:38] LABS: Alanine Aminotransferase 16 IU/L (<35); Albumin 3.9 g/dL (3.5-5.0); Albumin Globulin Ratio 1.5 (1.0-2.8); Alkaline Phosphatase 105 U/L (38-126); Aspartate Aminotransferase 21 IU/L (14-36); BUN Creatinine Ratio 14.1 (6-22); Bilirubin Total 0.9 mg/dL (0.2-1.3); Blood Urea Nitrogen 10 mg/dL (7-17); Carbon Dioxide 25 mmol/L (22-32); Chloride 105 mmol/L (98-107); Cholesterol 252 mg/dL (140-199); Estimated Glomerular Filt Rate > 60 mL/min (>60); Globulin 2.6 g/dL (1.7-4.1); Glucose 111 mg/dL (80-110); HDL Cholesterol 53 mg/dL (40-60); HEMOLYSIS < 15 (0-50); LDL Cholesterol Calculated 176 mg/dL (<100); Sodium 137 mmol/L (137-145); Total Protein 6.5 g/dL (6.3-8.2); Triglycerides 114 mg/dL (35-150)
[2023-11-26 20:09] LABS: TSH w/ Reflex to FT4 1.59 uIU/mL (0.47-4.68)
[2023-11-28 07:11] LABS: Fecal Immunochemical Test Negative (Negative)
[2023-11-28 21:50] LABS: Hep C Virus Ab w/Reflex Quant NEGATIVE s/c (NEGATIVE)
== END ==
PROVIDERS: PCP Physician Assistant; Visit Provider Physician Assistant
DX: E78.2 Mixed hyperlipidemia (principal); I10 Essential (primary) hypertension; Z79.899 Other long term (current) drug therapy; K21.00 Gastro-esophageal reflux disease with esophagitis, without bleeding; Z11.59 Encounter for screening for other viral diseases
CPT/HCPCS: 80053; 80061; 82274; 84443; 85025; 86803

== ENCOUNTER → 2024-04-02 10:53 | Outpatient (CLI) | payer MEDICARE, OTHER, SELFPAY ==
--- NOTE | 2024-04-02 10:55 | DI.NM.S_ITS ---
PROCEDURE: NM BONE SCAN LIMITED AREA RADIOPHARMACEUTICAL: 20 mCi Tc-99m MDP IV. INDICATIONS: Right pelvis bone pain. Abnormal CT pelvis 2018 TECHNIQUE: Multiple delayed bone scintigrams of the body part of interest were obtained approximately 3 hours after intravenous injection of Tc-99m MDP. COMPARISON: [facility], CT, CT ABDOMEN PELVIS W CON, 01/13/2019, 14:17. [facility], CR, XR PELVIS 1-2V, 04/02/2024, 11:10. FINDINGS: No suspicious radiotracer uptake. There is degenerative uptake associated with the hips, right greater than left. IMPRESSION: No suspicious radiotracer uptake. Dictated by: Gonzalo Quevedo M.D. on 04/02/2024 at 15:27 Approved by: Gonzalo Quevedo M.D. on 04/02/2024 at 15:29
--- NOTE | 2024-04-02 10:55 | DI.RAD.S_ITS ---
PROCEDURE: XR PELVIS 1-2V INDICATIONS: Right-sided pelvic pain. TECHNIQUE: Single view(s) of the pelvis acquired. COMPARISON: None. FINDINGS: Bones: No fractures or dislocations. No suspicious bony lesions. Moderate symmetric bilateral hip joint space narrowing and marginal osteophytic spurring. Soft tissues: Visualized bowel gas pattern is normal. No suspicious soft tissue calcifications. IMPRESSION: Moderate symmetric hip joint osteoarthritis. Dictated by: Josue Hannon M.D. on 04/02/2024 at 11:32 Approved by: Josue Hannon M.D. on 04/02/2024 at 11:33
== END ==
LOC: NUCM 10:54
PROVIDERS: PCP Physician Assistant; Referring Provider Physician Assistant; Visit Provider Physician Assistant
DX: R93.5 Abnormal findings on diagnostic imaging of other abdominal regions, including retroperitoneum (principal); M16.0 Bilateral primary osteoarthritis of hip; M25.551 Pain in right hip
CPT/HCPCS: 72170; 78300; A9503